=== PATIENT | female | born 1955 | race Caucasian/White ===

== ENCOUNTER 2017-01-19 10:00 | Observation (INO) | payer OTHER ==
--- NOTE | 2017-01-19 10:35 | PDOC ---
History of Present Illness - General History Source: Patient, Family Exam Limitations: No Limitations - History of Present Illness Initial Comments: 01/19/17 11:18 Patient is a 61 year old female with a significant past medical history of Cardiac problems who presents to the ED with complaints of neck pain beginning 4 days ago. Patient's daughter reports patient woke up in the morning 4 days ago and felt something pull in her neck causing instant pain. Daughter did not state patients pain intensity, but states patient is unable to sleep through the night due to the pain. She reports patient right neck pain radiates to her left rib cage. Patients daughter states patient has been taking motrin as well as heat and ice applications to neck for 4 days with minimal relief. Patient daughter states patient needs a defibrillator and is currently waiting for PCP to return on friday. Denies SOB, chest pain. Denies headache, lightheadedness. Denies any other symptoms. Allergies: None Social history: No smoking. No alcohol. No drugs. Surgical history: None PMD: Dr. higgins <Tyrese Schilling - Last Filed: 01/19/17 11:17> <Osei Lam - Last Filed: 01/19/17 12:56> - General Chief Complaint: Pain Stated Complaint: NECK PROBLEM Time Seen by Provider: 01/19/17 10:34 Past History <Tyrese Schilling - Last Filed: 01/19/17 11:17> - Past Medical History Cardiac Disorders: Yes (? does not know) HTN: Yes - Psycho/Social/Smoking Cessation Hx Anxiety: No Suicidal Ideation: No Smoking History: Never smoked Have you smoked in the past 12 months: No Information on smoking cessation initiated: No Hx Alcohol Use: No Drug/Substance Use Hx: No Substance Use Type: None <Osei Lam - Last Filed: 01/19/17 12:56> - Past Medical History Allergies/Adverse Reactions: Allergies Allergy/AdvReac Type Severity Reaction Status Date / Time No Known Allergies Allergy Verified 01/19/17 10:05 Home Medications: Ambulatory Orders Amlodipine Besylate 5 mg PO DAILY 01/19/17 Aspirin [Aspirin EC] 81 mg PO DAILY 01/19/17 Atorvastatin Ca [Lipitor] 20 mg PO HS 01/19/17 Metoprolol Tartrate 25 mg PO DAILY 01/19/17 Nortriptyline HCl [Pamelor -] 10 mg PO DAILY 01/19/17 Review of Systems - Review of Systems Able to Perform ROS?: Yes Comments:: 01/19/17 11:18 GENERAL/CONSTITUTIONAL: No fever or chills. No weakness. HEAD, EYES, EARS, NOSE AND THROAT: +Right neck pain No change in vision. No ear pain or discharge. No sore throat. CARDIOVASCULAR: +Left sided rib pain. No shortness of breath. RESPIRATORY: No cough, wheezing, or hemoptysis. GASTROINTESTINAL: No nausea, vomiting, diarrhea or constipation. GENITOURINARY: No dysuria, frequency, or change in urination. MUSCULOSKELETAL: No joint or muscle swelling or pain. No neck or back pain. SKIN: No rash NEUROLOGIC: No headache, vertigo, loss of consciousness, or change in strength/ sensation. ENDOCRINE: No increased thirst. No abnormal weight change. HEMATOLOGIC/LYMPHATIC: No anemia, easy bleeding, or history of blood clots. ALLERGIC/IMMUNOLOGIC: No hives or skin allergy. All Other Systems: Reviewed and Negative <Tyrese Schilling - Last Filed: 01/19/17 11:17> *Physical Exam - Vital Signs Last Vital Signs Temp Pulse Resp BP Pulse Ox 98.4 F 92 H 18 148/92 100 01/19/17 10:06 01/19/17 10:06 01/19/17 10:06 01/19/17 10:06 01/19/17 10:06 - Physical Exam Comments: 01/19/17 11:18 GENERAL: Awake, alert, and fully oriented, in no acute distress HEAD: No signs of trauma EYES: PERRLA, EOMI, sclera anicteric, conjunctiva clear ENT: Auricles normal inspection, hearing grossly normal, nares patent, oropharynx clear without exudates. Moist mucosa NECK: Normal ROM, supple, no lymphadenopathy, JVD, or masses LUNGS: Breath sounds equal, clear to auscultation bilaterally. No wheezes, and no crackles HEART: +Systolic murmur. 4/6 in volume Regular rate and rhythm, normal S1 and S2, no murmurs, rubs or gallops ABDOMEN: Soft, nontender, normoactive bowel sounds. No guarding, no rebound. No masses EXTREMITIES: Normal range of motion, no edema. No clubbing or cyanosis. No cords, erythema, or tenderness NEUROLOGICAL: Cranial nerves II through XII grossly intact. Normal speech, normal gait SKIN: Warm, Dry, normal turgor, no rashes or lesions noted. <TonieTyrese - Last Filed: 01/19/17 11:17> - Vital Signs Last Vital Signs Temp Pulse Resp BP Pulse Ox 98.4 F 92 H 18 148/92 100 01/19/17 10:06 01/19/17 10:06 01/19/17 10:06 01/19/17 10:06 01/19/17 10:06 <Osei Lam - Last Filed: 01/19/17 12:56> ED Treatment Course - LABORATORY CBC & Chemistry Diagram: 01/19/17 10:49 01/19/17 10:49 - ADDITIONAL ORDERS Additional order review: 01/19/17 10:49 RBC 4.69 MCV 86.0 MCHC 33.1 RDW 15.5 MPV 8.9 Neutrophils % 66.6 Lymphocytes % 20.9 Monocytes % 7.5 Eosinophils % 4.4 Basophils % 0.6 <Tyrese Schilling - Last Filed: 01/19/17 11:17> - LABORATORY CBC & Chemistry Diagram: 01/19/17 10:49 01/19/17 10:49 <Osei Lam - Last Filed: 01/19/17 12:56> *DC/Admit/Observation/Transfer - Attestations Scribe Attestion: 01/19/17 11:19 Documentation prepared by Tyrese Schilling, acting as medical transcription radiology for Osei Lam MD/DO. <Tyrese Schilling - Last Filed: 01/19/17 11:17> - Discharge Dispostion Admit: Yes - Attestations Physician Attestion: 01/19/17 10:35 I, Dr. Osei Lam, attest that this document has been prepared under my direction and personally reviewed by me in its entirety. I further attest, that it accurately reflects all work, treatment, procedures and medical decision -making performed by me. <Osei Lam - Last Filed: 01/19/17 12:56> Diagnosis at time of Disposition: Torticollis, Atypical chest pain, Dyslipidemia, Elevated troponin level HTN (hypertension) Qualifiers: Hypertension type: essential hypertension Qualified Code(s): I10 - Essential ( primary) hypertension CAD (coronary artery disease) Qualifiers: Coronary Disease-Associated Artery/Lesion type: [place] artery [place] vs. transplanted heart: [place] heart Associated angina: angina presence unspecified Qualified Code(s): I25.10 - Atherosclerotic heart disease of [place] coronary artery without angina pectoris Congestive heart failure Qualifiers: Congestive heart failure type: combined Congestive heart failure chronicity: acute on chronic Qualified Code(s): I50.43 - Acute on chronic combined systolic (congestive) and diastolic (congestive) heart failure - Discharge Dispostion Condition at time of disposition: Unchanged/Unknown - Referrals Referrals: STAFF,NOT ON [Primary Care Provider] -
[2017-01-19] MEDS ORDERED: morphine CARPU-JECT 4 MG/1 ML DISP.SYRIN IVPUSH ONE (10:48)
[2017-01-19] MEDS ORDERED: ASPIRIN 81 MG CHEWABLE TABLETS PO ONE (10:48)
[2017-01-19] MEDS ORDERED: ONDANSETRON 4 MG/2 ML VIAL IVPB ONE (10:50)
[2017-01-19] MEDS ORDERED: diazePAM CARPU-JECT 10 MG/2 ML DISP.SYRIN IVPUSH ONE (10:50)
[2017-01-19] MEDS ORDERED: SODIUM CHLORIDE 1,000 ML IV SCH (11:00)
[2017-01-19 11:07] LABS: BASOPHIL 0.6 % (0-2.0); EOSINOPHIL 4.4 % (0-4.5); MCH 28.5 pg (25.7-33.7); MCHC 33.1 g/dl (32.0-36.0); MEAN PLT VOLUME 8.9 fl (7.5-11.1); NEUTROPHILS 66.6 % (42.8-82.8); PLATELET COUNT 142 K/MM3 (134-434); RDW 15.5 % (11.6-15.6); WHITE BLOOD COUNT 9.3 K/mm3 (4.0-10.0)
[2017-01-19 11:28] LABS: INR 1.27 (0.82-1.09)
[2017-01-19 11:43] LABS: ALBUMIN 4.3 g/dl (3.4-5.0); ANION GAP 10 (8-16); BILIRUBIN,TOTAL 0.4 mg/dL (0.2-1.0); CO2 26 mmol/L (21-32); CREATININE 0.8 mg/dL (0.55-1.02); GLUCOSE,RANDOM 82 mg/dL (74-106); MAGNESIUM 2.3 mg/dL (1.8-2.4); SGOT/AST 20 U/L (15-37); SGPT/ALT 11 U/L (12-78); TOT PROT 7.2 g/dl (6.4-8.2)
[2017-01-19 11:46] LABS: ALK PHOS 92 U/L (45-117); CPK 112 IU/L (26-192); TROPONIN I 0.32 ng/ml (0.00-0.05)
[2017-01-19 17:00] VITALS: BMI 29.2
[2017-01-19] MEDS ORDERED: FLU VACCINE QUAD 60 MCG/0.5 ML (MDV 17-18) IM ONE ×2 (17:00→18:15)
[2017-01-19] MEDS ORDERED: ACETAMINOPHEN 325 MG TABLET (FP) PO PRN (17:43)
[2017-01-19] MEDS ORDERED: oxyCODONE HCL 5 MG TABLET PO PRN (17:43)
[2017-01-19] MEDS ORDERED: diazePAM 5 MG TABLET PO ONE (18:13)
--- NOTE | 2017-01-19 18:14 | HP ---
Admitting History and Physical - Admission Chief Complaint: neck pain History of Present Illness: This is a 61 year old female with pmhx HTN, CAD with ?[place] last year, where she was sent to [facility]. At that time she was told that the [place] caused a "hole in her heart" to which her communications equipment supervisor told her she needs a pacemaker. Since then she has noted increased dyspnea on exertion and left sided swelling. Thee reason for this hospital visit is she has had increased r sided neck pain for 3 days and is unable to turn her head to the right. Currently, she denies sob, vomiting, nausea, chest pain, palpitations, or difficulty swallowing History Source: Patient - Past Medical History Cardiovascular: Yes: HTN, [place] (2016), Other (cardiomyopathy) - Past Surgical History Past Surgical History: Yes: (x3) - Smoking History Smoking history: Never smoked Have you smoked in the past 12 months: No - Alcohol/Substance Use Hx Alcohol Use: No History of Substance Use: reports: None - Social History Usual Living Arrangement: Yes: With Spouse ADL: Independent History of Recent Travel: No Home Medications - Allergies Allergies/Adverse Reactions: Allergies Allergy/AdvReac Type Severity Reaction Status Date / Time No Known Allergies Allergy Verified 01/19/17 10:05 - Home Medications Home Medications: Ambulatory Orders Amlodipine Besylate 5 mg PO DAILY 01/19/17 Aspirin [Aspirin EC] 81 mg PO DAILY 01/19/17 Atorvastatin Ca [Lipitor] 20 mg PO HS 01/19/17 Metoprolol Tartrate 25 mg PO DAILY 01/19/17 Nortriptyline HCl [Pamelor -] 10 mg PO DAILY 01/19/17 Review of Systems - Review of Systems Constitutional: reports: No Symptoms Eyes: reports: No Symptoms HENT: reports: Other (R neck pain) Neck: reports: Pain on Movement, Stiffness, Other (r neck pain) Respiratory: reports: No Symptoms Gastrointestinal: reports: No Symptoms Genitourinary: reports: No Symptoms Musculoskeletal: reports: Other (neck pain refers across chest to abdomen) Integumentary: reports: No Symptoms Neurological: reports: No Symptoms Endocrine: reports: No Symptoms Hematology/Lymphatic: reports: No Symptoms Psychiatric: reports: No Symptoms Physical Examination Vital Signs: Vital Signs Temperature 97.7 F 01/19/17 17:00 Pulse Rate 82 01/19/17 17:00 Respiratory Rate 20 01/19/17 17:00 Blood Pressure 114/69 01/19/17 17:00 O2 Sat by Pulse Oximetry (%) 94 L 01/19/17 15:40 Constitutional: Yes: Well Nourished Eyes: Yes: WNL HENT: Yes: WNL Neck: Yes: Rigid, Tenderness, Other (R neck pain, unable to turn R head to right refers diagonally across chest to LUQ) Cardiovascular: Yes: Regular Rate and Rhythm, Murmur, S1, S2 Respiratory: Yes: Regular, CTA Bilaterally Gastrointestinal: Yes: Normal Bowel Sounds, Soft Imaging - Results Cat Scan: Report Reviewed (normal ct neck) Problem List - Problems (1) CAD (coronary artery disease) Code(s): I25.10 - ATHSCL HEART DISEASE OF [place] CORONARY ARTERY W/O ANG PCTRS Qualifiers: Coronary Disease-Associated Artery/Lesion type: [place] artery [place] vs. transplanted heart: [place] heart Associated angina: angina presence unspecified Qualified Code(s): I25.10 - Atherosclerotic heart disease of [place] coronary artery without angina pectoris (2) Dyslipidemia Code(s): E78.5 - HYPERLIPIDEMIA, UNSPECIFIED (3) HTN (hypertension) Code(s): I10 - ESSENTIAL (PRIMARY) HYPERTENSION Qualifiers: Hypertension type: essential hypertension Qualified Code(s): I10 - Essential (primary) hypertension (4) Torticollis Code(s): M43.6 - TORTICOLLIS (5) Cardiomyopathy Code(s): I42.9 - CARDIOMYOPATHY, UNSPECIFIED Assessment/Plan Assessment: 61 year old female admitted with torticollis Plan: 1. Torticollis - Normally would give NSAIDs and valium - Hold NSAID d/t CAD - Trial valium 5mg x1, monitor for improvement - Percocet prn pain - CT neck negative 2. Cardiomyopathy/CAD - Pt is being followed by Dr. Walters communications equipment supervisor. Per the daughter the patient is awaiting AICD placement tentatively scheduled for Friday. This needs to be confirmed. - Due to patient cardiac disease, BNP elevation likely chronic with intermediate elevated troponin - Will obtain x1 more set CE - Pt ideally should be on NADER and spironolactone, f/u with Dr. Walters 3. HTN - Continue amlodipine 5mg - Continue metoprolol 25mg daily 4. HLD - Statin HS Dispo: - DC home tomorrow pending improved neck pain and discussion with outpt cardiology Visit type - Emergency Visit Emergency Visit: Yes ED Registration Date: 01/19/17 Care time: The patient presented to the Emergency Department on the above date and was hospitalized for further evaluation of their emergent condition. - New Patient This patient is new to me today: Yes Date on this admission: 01/19/17 - Critical Care Critical Care patient: No
[2017-01-19 18:54] LABS: TROPONIN I 0.32 ng/ml (0.00-0.05)
[2017-01-19] MEDS: ATORVASTATIN CA 20 MG TABLET (FP) PO SCH (21:11)
[2017-01-19 22:31] LABS: URINE APPEARANCE CLEAR; URINE BILIRUBIN NEGATIVE (NEGATIVE); URINE BLOOD 2+ (NEGATIVE); URINE COLOR YELLOW; URINE GLUCOSE (UA) NEGATIVE (NEGATIVE); URINE KETONE NEGATIVE (NEGATIVE); URINE LEUK ESTERASE NEGATIVE (NEGATIVE); URINE NITRITE NEGATIVE (NEGATIVE); URINE PROTEIN NEGATIVE (NEGATIVE); URINE UROBILINOGEN NEGATIVE mg/dL (0.2-1.0)
[2017-01-19 22:44] LABS: URINE MUCUS RARE; URINE RBC 6 /hpf (0-3); URINE WBC 3 /hpf (3-5)
[2017-01-20 08:00] LABS: ANION GAP 5 (8-16); CALCIUM 8.1 mg/dL (8.5-10.1); CO2 27 mmol/L (21-32); CREATININE 0.9 mg/dL (0.55-1.02); GLUCOSE,RANDOM 125 mg/dL (74-106)
[2017-01-20 08:33] LABS: TROPONIN I 0.33 ng/ml (0.00-0.05)
[2017-01-20] MEDS ORDERED: PT OWN MED DRAWER 7, Y5N ONE (08:59)
[2017-01-20] MEDS: METOPROLOL TARTRATE 25 MG TABLET (FP) PO SCH (09:01)
[2017-01-20] MEDS: ASPIRIN COATED 81 MG TABLET.EC PO SCH (09:01)
[2017-01-20] MEDS: NORTRIPTYLINE HCL 10 MG CAPSULE PO SCH (09:01)
--- NOTE | 2017-01-20 09:56 | CON.CARD ---
Consult Consult Specialty:: Cardiology Referred by:: Hospitalist Medicine Reason for Consultation:: Hypertrophic cardiomyopathy, subendocardial ischemia - History of Present Illness Chief Complaint: Neck spasms/pain History of Present Illness: 61 year old female with pmhx HTN, hypertrophic cardiomyopathy with mod-severe MR and chordal [place], hyperlipidemia sees Dr. Walters in office and planned for CT coronaries presented for increased right sided neck pain for 3 days unamenable to Motrin or warm compresses and is unable to turn her head to the right. Currently, she denies sob, vomiting, nausea, chest pain, palpitations, near or true syncope, orthopnea, PND or LE edema, neck pain mildly improved. History Source: Patient - Past Medical History Cardiovascular: Yes: HTN, [place] (2016), Other (cardiomyopathy) - History Source History Provided By: Patient Limitations to Obtaining History: No Limitations - Past Medical History Cardio/Vascular: Yes: HTN, [place] (2016), Other (cardiomyopathy) - Past Surgical History Past Surgical History: Yes: (x3) - Alcohol/Substance Use Hx Alcohol Use: No History of Substance Use: reports: None - Smoking History Smoking history: Never smoked Have you smoked in the past 12 months: No - Social History ADL: Independent History of Recent Travel: No Home Medications - Allergies Allergies/Adverse Reactions: Allergies Allergy/AdvReac Type Severity Reaction Status Date / Time No Known Allergies Allergy Verified 01/19/17 10:05 - Home Medications Home Medications: Ambulatory Orders Amlodipine Besylate 5 mg PO DAILY 01/19/17 Aspirin [Aspirin EC] 81 mg PO DAILY 01/19/17 Atorvastatin Ca [Lipitor] 20 mg PO HS 01/19/17 Metoprolol Tartrate 25 mg PO DAILY 01/19/17 Nortriptyline HCl [Pamelor -] 10 mg PO DAILY 01/19/17 Review of Systems - Review of Systems Neck: reports: Pain on Movement Vital Signs: Vital Signs Temperature 98.2 F 01/20/17 08:00 Pulse Rate 72 01/20/17 08:00 Respiratory Rate 14 01/20/17 08:00 Blood Pressure 108/60 01/20/17 08:00 O2 Sat by Pulse Oximetry (%) 96 01/19/17 23:12 Constitutional: Yes: No Distress, Calm Neck: Yes: Supple Respiratory: Yes: Regular, Diminished Gastrointestinal: Yes: Normal Bowel Sounds, Soft, Abdomen, Obese Cardiovascular: Yes: Regular Rate and Rhythm JVD: No Carotid Bruit: No Heart Sounds: Yes: S1, S2 Murmur: Yes: Systolic Murmur, Grade 2 Edema: No - Other Data Labs, Other Data: CBC, BMP 01/20/17 05:35 INR, PTT INR 1.27 (0.82-1.09) H 01/19/17 11:00 Troponin, BNP 01/19/17 01/20/17 01/20/17 18:15 05:35 07:55 Troponin I 0.32 H 0.33 H Cancelled Troponin, BNP 01/19/17 01/20/17 01/20/17 18:15 05:35 07:55 Troponin I 0.32 H 0.33 H Cancelled NSR @ 90 LAE, LVH with repolarozation abnl Tele: Rare PVC Echo: Report Reviewed Ejection Fraction %: LVEF > or = 40 % Imaging - Results Chest X-ray: Report Reviewed (NAD) Cat Scan: Report Reviewed (Normal neck CT) Problem List - Problems (1) CHF (congestive heart failure) Code(s): I50.9 - HEART FAILURE, UNSPECIFIED Qualifiers: Congestive heart failure type: diastolic Congestive heart failure chronicity: chronic Qualified Code(s): I50.32 - Chronic diastolic ( congestive) heart failure (2) Cardiomyopathy Code(s): I42.9 - CARDIOMYOPATHY, UNSPECIFIED Qualifiers: Cardiomyopathy type: obstructive hypertrophic Qualified Code(s): I42.1 - Obstructive hypertrophic cardiomyopathy (3) Dyslipidemia Code(s): E78.5 - HYPERLIPIDEMIA, UNSPECIFIED (4) Elevated troponin Code(s): R74.8 - ABNORMAL LEVELS OF OTHER SERUM ENZYMES (5) Torticollis Code(s): M43.6 - TORTICOLLIS (6) Subendocardial ischemia Code(s): I24.8 - OTHER FORMS OF ACUTE ISCHEMIC HEART DISEASE (7) Hypertensive cardiomyopathy Code(s): I11.9 - HYPERTENSIVE HEART DISEASE WITHOUT HEART FAILURE I43 - CARDIOMYOPATHY IN DISEASES CLASSIFIED ELSEWHERE Qualifiers: Heart failure presence: without heart failure Qualified Code(s): I11.9 - Hypertensive heart disease without heart failure; I43 - Cardiomyopathy in diseases classified elsewhere (8) Moderate to severe mitral regurgitation Code(s): I34.0 - NONRHEUMATIC MITRAL (VALVE) INSUFFICIENCY (9) Systolic anterior movement of mitral valve Code(s): I34.8 - OTHER NONRHEUMATIC MITRAL VALVE DISORDERS Assessment/Plan 10/11/2016 Echo: Normal LV size with severe cLVH, hyperdynamic LVEF>70%, chordal [place], MG/PG LVOT 37/65 mmHg, mod LAE, mod-severe MR, mild AR, TR 10/03/2016 ETT Myoview: Negative for ischemia submaximal test achieving 77% MPHR, LVEF 33% 12/26/2016 No VT, on PVC pair, several SVE pairs and short runs 1. Torticollis improved 2. Subendocardial ischemia 3. Hypertrophic cardiomyopathy with [place] and mod-severe MR 4. HTN/HCVD P:1. Analgesia as needed, avoid NSAIDs 2. ASA 81 qd, Lipitor 20 qhs, Toprol XL 25 qd, d/c Norvasc 5 qd and resume Cardizem CD 180 qd and uptitrate as tolerated 3. Patient to f/u with Dr. Bernardo Walters upon d/c for coronary CT, most recent visit 12/25/2016 4. Thank you for consultative opportunity
--- NOTE | 2017-01-20 09:59 | PN ---
Physical Exam: SUBJECTIVE: Patient seen and examined at the bedside. States her neck pain/discomfor is improving and she is able turn her head to the right. States her neck pain radiates across the left side of her chest to her left upper rib cage. OBJECTIVE: Patient follows Dr. Walters - eyeletter she follows closely since her [place]. Her PCP is Dr. Strange. She had a holtor monitor placed last week by Dr. Walters and she has not yet followed up with him for results Troponins 0.32> 0.32 >0.33 Vital Signs Period Temp Pulse Resp BP Sys/Lopez Pulse Ox Last 24 Hr 97.7 F-98.6 F 72-86 14-22 104-147/60-77 94-96 GENERAL: The patient is awake, alert, and fully oriented, in no acute distress. HEAD: Normal with no signs of trauma. EYES: PERRL, extraocular movements intact, sclera anicteric, conjunctiva clear. No ptosis. ENT: Ears normal, nares patent, oropharynx clear without exudates, moist mucous membranes. NECK: Trachea midline, full range of motion, supple. LUNGS: Breath sounds equal, clear to auscultation bilaterally, no wheezes, no crackles, no accessory muscle use. HEART: Regular rate and rhythm, S1, S2 without murmur, rub or gallop. ABDOMEN: Soft, nontender, nondistended, normoactive bowel sounds, no guarding, no rebound, no hepatosplenomegaly, no masses. EXTREMITIES: no edema. NEUROLOGICAL: Normal speech, gait not observed. PSYCH: Normal mood, normal affect. SKIN: Warm, dry, normal turgor, no rashes or lesions noted Laboratory Results - last 24 hr 01/19/17 01/19/17 01/20/17 18:15 21:15 05:35 Sodium 140 Potassium 3.5 Chloride 108 H Carbon Dioxide 27 Anion Gap 5 L BUN 22 H D Creatinine 0.9 Random Glucose 125 H D Calcium 8.1 L Creatine Kinase 107 Troponin I 0.32 H 0.33 H Urine Color Yellow Urine Appearance Clear Urine pH 5.0 Urine Protein Negative Urine Glucose (UA) Negative Urine Ketones Negative Urine Blood 2+ H Urine Nitrite Negative Urine Bilirubin Negative Urine Urobilinogen Negative Urine RBC 6 Urine WBC 3 Ur Epithelial Cells Rare Urine Mucus Rare 01/20/17 07:55 Sodium Potassium Chloride Carbon Dioxide Anion Gap BUN Creatinine Random Glucose Calcium Creatine Kinase Troponin I Cancelled Urine Color Urine Appearance Urine pH Urine Protein Urine Glucose (UA) Urine Ketones Urine Blood Urine Nitrite Urine Bilirubin Urine Urobilinogen Urine RBC Urine WBC Ur Epithelial Cells Urine Mucus Active Medications Generic Name Dose Route Start Last Admin Trade Name Freq PRN Reason Stop Dose Admin Acetaminophen 650 mg 01/19/17 17:43 01/20/17 02:54 Tylenol - PO 650 mg Q6H PRN Administration FEVER OR PAIN Amlodipine Besylate 5 mg 01/20/17 10:00 01/20/17 09:01 Norvasc - PO 5 mg DAILY ANGEL Administration Aspirin 81 mg 01/20/17 10:00 01/20/17 09:01 Ecotrin - PO 81 mg DAILY ANGEL Administration Atorvastatin Calcium 20 mg 01/19/17 22:00 01/19/17 21:11 Lipitor - PO 20 mg HS ANGEL Administration Metoprolol Tartrate 25 mg 01/20/17 10:00 01/20/17 09:01 Lopressor - PO 25 mg DAILY ANGEL Administration Nortriptyline HCl 10 mg 01/20/17 10:00 01/20/17 09:01 Pamelor - PO 10 mg DAILY ANGEL Administration Oxycodone HCl 5 mg 01/19/17 17:43 01/19/17 18:21 Roxicodone - PO 5 mg Q4H PRN Administration PAIN ASSESSMENT/PLAN: Patient is a 61 year old female with a significant past medical history of HTN, CAD and [place] within last year. As per ED records, patient reports that she was told the [place] caused a "hole in her heart" to which her eyeletter told her she needs a pacemaker. She had a holter monitor study done as an outpatient last week, results have not been yet given to her. Patient presented to the hospital on 01/19/2017 with increased right sided neck pain x 3 days and is unable to turn her head to the right. Currently, she denies sob, vomiting, nausea, chest pain, palpitations, or difficulty swallowing. Muscular/Skeletal: Torticollis - improved A/P: CT of neck negative for any acute process Neck pain improved with current regimen of Oxycodone PRN Hold NSAIDs secondary to CAD Patient reports her neck pain is improving Cardiology: Cardiomyopathy/CAD/HTN/HLD - chronic A/P: Pt is being followed by Dr. Walters eyeletter and had a recent holter monitor last week On ASA 81mg daily, Lipotor 20mg @hs, Toprol 25mg daily, Cardizem CD 180mg daily BNP and Troponins elevated likely chronic secondary to chronic cardiac disease Patient to f/u with Dr. Bernardo Walters upon d/c for coronary CT Patient cleared by cardiology for d/c but since she reports not feeing well ( intermittent chest discomfort) will d/c in a.m. Patient and daughter in agreement Disposition: Observation stay, discharge in a.m. Patient to follow up with her eyeletter. Full code. Visit type - Emergency Visit Emergency Visit: Yes ED Registration Date: 01/19/17 Care time: The patient presented to the Emergency Department on the above date and was hospitalized for further evaluation of their emergent condition. - New Patient This patient is new to me today: Yes Date on this admission: 01/20/17 - Critical Care Critical Care patient: No - Discharge Referral Referred to [facility] Med P.C.: No
[2017-01-20] MEDS ORDERED: amLODIPine BESYLATE 5 MG TABLET (FP) PO SCH (10:00)
--- NOTE | 2017-01-20 13:58 | EKG ---
Test Reason : Blood Pressure : / mmHG Vent. Rate : 090 BPM Atrial Rate : 090 BPM P-R Int : 166 ms QRS Dur : 110 ms QT Int : 382 ms P-R-T Axes : 051 002 169 degrees QTc Int : 467 ms NORMAL SINUS RHYTHM POSSIBLE LEFT ATRIAL ENLARGEMENT LEFT VENTRICULAR HYPERTROPHY WITH REPOLARIZATION ABNORMALITY ABNORMAL ECG WHEN COMPARED WITH ECG OF 02-OCT-2010 00:48, QRS DURATION HAS INCREASED Confirmed by LIBBY RODRIGUEZ, JANINA ([id number]) on 01/20/2017 1:58:32 PM Referred By: Confirmed By:JANINA SOUZA MD
[2017-01-20] MEDS: ATORVASTATIN CA 20 MG TABLET (FP) PO SCH (22:07)
--- NOTE | 2017-01-21 09:15 | DS ---
Physical Exam: SUBJECTIVE: Patient seen and examined at the bedside. States her neck pain/discomfort is improving and she is able turn her head to the right. She denies chest pain or shortness of breath. OBJECTIVE: Patient follows Dr. Walters - wood casket assembler she follows closely since her CA. Her PCP is Dr. Strange who patient will go see today She had a holtor monitor placed last week by Dr. Walters and she has not yet followed up with him for results Troponins 0.32> 0.32 >0.33 Cleared for discharge by cardiology, patient is to follow up with her private wood casket assembler on d/c. Vital Signs Period Temp Pulse Resp BP Sys/Lopez Pulse Ox Last 24 Hr 97.6 F-98.8 F 66-83 14-20 108-132/60-78 96-97 PHYSICAL EXAM GENERAL: The patient is awake, alert, and fully oriented, in no acute distress. HEAD: Normal with no signs of trauma. EYES: PERRL, extraocular movements intact, sclera anicteric, conjunctiva clear. No ptosis. ENT: Ears normal, nares patent, oropharynx clear without exudates, moist mucous membranes. NECK: Trachea midline, full range of motion, supple. LUNGS: Breath sounds equal, clear to auscultation bilaterally, no wheezes, no crackles, no accessory muscle use. HEART: Regular rate and rhythm ABDOMEN: Soft, nontender, nondistended, normoactive bowel sounds, no guarding, no rebound, no hepatosplenomegaly, no masses. EXTREMITIES: no edema. NEUROLOGICAL: Normal speech, gait not observed. PSYCH: Normal mood, normal affect. SKIN: Warm, dry, normal turgor, no rashes or lesions noted LABS Laboratory Results - last 24 hr 01/19/17 21:15 Urine Color Yellow Urine Appearance Clear Urine pH 5.0 Ur Specific [place] 1.025 Urine Protein Negative Urine Glucose (UA) Negative Urine Ketones Negative Urine Blood 2+ H Urine Nitrite Negative Urine Bilirubin Negative Urine Urobilinogen Negative Urine RBC 6 Urine WBC 3 Ur Epithelial Cells Rare Urine Mucus Rare HOSPITAL COURSE: Date of Admission:01/19/17 Date of Discharge: 01/21/17 ASSESSMENT/PLAN: Patient is a 61 year old female with a significant past medical history of HTN, CAD and CA within last year. As per ED records, patient reports that she was told the CA caused a "hole in her heart" to which her wood casket assembler told her she needs a pacemaker. She had a holter monitor study done as an outpatient last week, results have not been yet given to her. Patient presented to the hospital on 01/19/2017 with increased right sided neck pain x 3 days and is unable to turn her head to the right. Currently, she denies sob, vomiting, nausea, chest pain, palpitations, or difficulty swallowing. Muscular/Skeletal: Torticollis - improved A/P: CT of neck negative for any acute process Neck pain improved with current regimen of Oxycodone PRN Hold NSAIDs secondary to CAD Patient reports her neck pain is improving Cardiology: Cardiomyopathy/CAD/HTN/HLD - chronic A/P: Pt is being followed by Dr. Walters wood casket assembler and had a recent holter monitor last week On ASA 81mg daily, Lipotor 20mg @hs, Toprol 25mg daily, Cardizem CD 180mg daily BNP and Troponins elevated likely chronic secondary to chronic cardiac disease Patient to f/u with Dr. Bernardo Walters upon d/c for coronary CT Patient cleared by cardiology for d/c but since she reports not feeing well ( intermittent chest discomfort) will d/c in a.m. Patient and daughter in agreement Disposition: Observation stay, discharge in a.m. Patient to follow up with her wood casket assembler. Full code. 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 Strange) and your wood casket assembler within one week after discharge. Patient to f/u with Dr. Bernardo Walters upon discharge for coronary CT. Please take the pain medication for your neck pain as indicated. Please return to the ER if your symptoms persist or worsen. [facility] [phone] Referrals: Bernardo Walters MD [Non Staff, Medical] - STAFF,NOT ON [Primary Care Provider] - Disposition: HOME - Home Medications Comprehensive Discharge Medication List: Ambulatory Orders Aspirin [Aspirin EC] 81 mg PO DAILY 01/19/17 Atorvastatin Ca [Lipitor] 20 mg PO HS 01/19/17 Metoprolol Tartrate 25 mg PO DAILY 01/19/17 Nortriptyline HCl [Pamelor -] 10 mg PO DAILY 01/19/17 Acetaminophen [Tylenol .Regular Strength -] 650 mg PO Q6H PRN #0 tablet Aspirin Coated [Ecotrin -] 81 mg PO DAILY #30 tab 01/21/17 Diltiazem Cd [Cardizem Cd -] 180 mg PO DAILY #30 cap 01/21/17 Oxycodone HCl [Roxicodone -] 5 mg PO Q4H PRN #14 tablet MDD 6 tabs 01/21/17 This patient is new to me today: No Emergency Visit: Yes ED Registration Date: 01/19/17 Care time: The patient presented to the Emergency Department on the above date and was hospitalized for further evaluation of their emergent condition. Critical Care patient: No - Discharge Referral Referred to [facility] Med P.C.: No
[2017-01-21] MEDS ORDERED: PT OWN MED DRAWER 7, Y5N ONE (09:38)
[2017-01-21] MEDS: METOPROLOL TARTRATE 25 MG TABLET (FP) PO SCH (09:44)
[2017-01-21] MEDS: NORTRIPTYLINE HCL 10 MG CAPSULE PO SCH (09:44)
[2017-01-21] MEDS: ASPIRIN COATED 81 MG TABLET.EC PO SCH (09:44)
[2017-01-21 10:33] VITALS: BP 130/69; PULSE 76; TEMP 98.1
--- NOTE | 2017-01-21 10:33 | PN ---
Progress Note, Physician Chief Complaint: Events noted Complains of neck pain, but appears improved History of Present Illness: Patient was seen and examined. Awake and alert. Chart was reviewed Denies chest pain this am. No SOB or palpitations Troponin trending down - Current Medication List Current Medications: Active Medications Acetaminophen (Tylenol -) 650 mg PO Q6H PRN PRN Reason: FEVER OR PAIN Last Admin: 01/20/17 02:54 Dose: 650 mg Aspirin (Ecotrin -) 81 mg PO DAILY [facility] Last Admin: 01/21/17 09:44 Dose: 81 mg Atorvastatin Calcium (Lipitor -) 20 mg PO HS [facility] Last Admin: 01/20/17 22:07 Dose: 20 mg Diltiazem HCl (Cardizem Cd -) 180 mg PO DAILY [facility] Last Admin: 01/21/17 09:44 Dose: 180 mg Metoprolol Tartrate (Lopressor -) 25 mg PO DAILY [facility] Last Admin: 01/21/17 09:44 Dose: 25 mg Nortriptyline HCl (Pamelor -) 10 mg PO DAILY [facility] Last Admin: 01/21/17 09:44 Dose: 10 mg Oxycodone HCl (Roxicodone -) 5 mg PO Q4H PRN PRN Reason: PAIN Last Admin: 01/19/17 18:21 Dose: 5 mg - Objective Vital Signs: Vital Signs Temperature 98.8 F 01/21/17 06:00 Pulse Rate 66 01/21/17 06:00 Respiratory Rate 20 01/21/17 06:00 Blood Pressure 125/60 01/21/17 06:00 O2 Sat by Pulse Oximetry (%) 96 01/20/17 23:00 Neck: Yes: Supple Cardiovascular: Yes: Regular Rate and Rhythm, Murmur (2/6 BENJAMIN left sternal border), S1, S2 Respiratory: Yes: CTA Bilaterally Gastrointestinal: Yes: Normal Bowel Sounds, Soft. No: Tenderness Edema: No Additional Findings/Remarks: - Review of Systems Constitutional: denies: Chills, Fever Cardiovascular: denies: Chest Pain, Palpitations, Shortness of Breath Respiratory: denies: Cough, Hemoptysis, Orthopnea, PND, SOB, SOB on Exertion, Wheezing Gastrointestinal: denies: Abdominal Pain, Constipation, Diarrhea, Melena, Nausea , Rectal Bleeding, Vomiting Genitourinary: denies: Dysuria Musculoskeletal: denies: Back Pain. denies: Joint Pain Neurological: denies: Dizziness, Headache, Numbness, Seizure, Syncope, Weakness Labs: CBC, BMP 01/20/17 05:35 INR, PTT INR 1.27 (0.82-1.09) H 01/19/17 11:00 CBCD WBC 9.3 K/mm3 (4.0-10.0) 01/19/17 10:49 RBC 4.69 M/mm3 (3.60-5.2) 01/19/17 10:49 Hgb 13.4 GM/dL (10.7-15.3) 01/19/17 10:49 Hct 40.3 % (32.4-45.2) 01/19/17 10:49 MCV 86.0 fl (80-96) 01/19/17 10:49 MCHC 33.1 g/dl (32.0-36.0) 01/19/17 10:49 RDW 15.5 % (11.6-15.6) 01/19/17 10:49 Plt Count 142 K/MM3 (134-434) 01/19/17 10:49 MPV 8.9 fl (7.5-11.1) 01/19/17 10:49 CMP Sodium 140 mmol/L (136-145) 01/20/17 05:35 Potassium 3.5 mmol/L (3.5-5.1) 01/20/17 05:35 Chloride 108 mmol/L (98-107) H 01/20/17 05:35 Carbon Dioxide 27 mmol/L (21-32) 01/20/17 05:35 Anion Gap 5 (8-16) L 01/20/17 05:35 BUN 22 mg/dL (7-18) H D 01/20/17 05:35 Creatinine 0.9 mg/dL (0.55-1.02) 01/20/17 05:35 Creat Clearance w eGFR > 60 (>60) 01/19/17 10:49 Random Glucose 125 mg/dL (74-106) H D 01/20/17 05:35 Calcium 8.1 mg/dL (8.5-10.1) L 01/20/17 05:35 Total Bilirubin 0.4 mg/dL (0.2-1.0) 01/19/17 10:49 AST 20 U/L (15-37) 01/19/17 10:49 ALT 11 U/L (12-78) L 01/19/17 10:49 Alkaline Phosphatase 92 U/L (45-117) 01/19/17 10:49 Total Protein 7.2 g/dl (6.4-8.2) 01/19/17 10:49 Albumin 4.3 g/dl (3.4-5.0) 01/19/17 10:49 CARDIAC ENZYMES Creatine Kinase 107 IU/L (26-192) 01/19/17 18:15 Troponin I 0.33 ng/ml (0.00-0.05) H 01/20/17 05:35 Problem List - Problems (1) Dyslipidemia Code(s): E78.5 - HYPERLIPIDEMIA, UNSPECIFIED (2) Elevated troponin Code(s): R74.8 - ABNORMAL LEVELS OF OTHER SERUM ENZYMES (3) HTN (hypertension) Code(s): I10 - ESSENTIAL (PRIMARY) HYPERTENSION Qualifiers: Hypertension type: essential hypertension Qualified Code(s): I10 - Essential (primary) hypertension (4) Hypertensive cardiomyopathy Code(s): I11.9 - HYPERTENSIVE HEART DISEASE WITHOUT HEART FAILURE I43 - CARDIOMYOPATHY IN DISEASES CLASSIFIED ELSEWHERE Qualifiers: Heart failure presence: without heart failure Qualified Code(s): I11.9 - Hypertensive heart disease without heart failure; I43 - Cardiomyopathy in diseases classified elsewhere (5) Moderate to severe mitral regurgitation Code(s): I34.0 - NONRHEUMATIC MITRAL (VALVE) INSUFFICIENCY (6) Subendocardial ischemia Code(s): I24.8 - OTHER FORMS OF ACUTE ISCHEMIC HEART DISEASE (7) Systolic anterior movement of mitral valve Code(s): I34.8 - OTHER NONRHEUMATIC MITRAL VALVE DISORDERS (8) Torticollis Code(s): M43.6 - TORTICOLLIS (9) Hypertrophic cardiomyopathy Code(s): I42.2 - OTHER HYPERTROPHIC CARDIOMYOPATHY Assessment/Plan 1. Torticollis improved 2. Subendocardial ischemia 3. Hypertrophic cardiomyopathy with chordal [place] and moderate - severe MR 4. HTN/HCVD PLAN: 1. Analgesia as needed. avoid NSAIDs 2. ASA 81 mg qd, Lipitor 20 mg qhs, Toprol XL 25 mg qd and Cardizem CD 180 mg qd and uptitrate as tolerated 3. Patient to f/u with Dr. Bernardo Walters upon discharge for further cardiac evaluation. Repeat troponin this am and if trends down, may discharge her home. Andrew Berkowitz MD
[2017-01-21 12:09] LABS: TROPONIN I 0.32 ng/ml (0.00-0.05)
== END 2017-01-21 11:36 | disposition home or self-care (01) ==
LOC: JER 10:00 → INTOOBSV 12:56 → JERBED 12:56 → J4W 15:11
PROVIDERS: ADMIT Internal Medicine; ATTEND Nurse Practitioner Family
PROC: 3E033NZ Introduction of Analgesics, Hypnotics, Sedatives into Peripheral Vein, Percutaneous Approach (ICD-10-PCS; principal; 2017-01-19)
PROC: 3E033GC Introduction of Other Therapeutic Substance into Peripheral Vein, Percutaneous Approach (ICD-10-PCS; 2017-01-19)
PROC: 3E033NZ Introduction of Analgesics, Hypnotics, Sedatives into Peripheral Vein, Percutaneous Approach (ICD-10-PCS; 2017-01-19)
DX: R07.9 Chest pain, unspecified (principal); I50.32 Chronic diastolic (congestive) heart failure; I42.1 Obstructive hypertrophic cardiomyopathy; I24.8 Other forms of acute ischemic heart disease; I34.0 Nonrheumatic mitral (valve) insufficiency; I34.8 Other nonrheumatic mitral valve disorders; R74.8 Abnormal levels of other serum enzymes; M43.6 Torticollis
CPT/HCPCS: 36415; 70490-TC; 71010-TC; 80048; 80053; 81003; 81015; 83690; 83735; 83880; 84484; 85025; 85610; 90688; 93005; 93010; 93306-TC; 99284-25; G0378